=== PATIENT | male | born 1995 | race Caucasian/White ===

== ENCOUNTER → 2017-04-28 | Outpatient (CLI) | payer BC, OTHER ==
[~2017-04-28] MED LIST: /DILT30TAB; ACET-653
--- NOTE | 2017-04-28 17:05 | REP ---
Clinical: Dyspnea . Comparison: 07/31/2009 . Technique: PA and lateral. Findings: The mediastinum and cardiac silhouette are normal. The lung hogan are clear and without acute consolidation, effusion, or pneumothorax. The skeletal structures are intact and normal. Impression: 1. No acute cardiopulmonary process. Signed by William Larson MD 04/28/2017 04:57 P
== END ==
LOC: M WUC 16:46
PROVIDERS: ATTEND Physician Assistant
DX: R07.1 Chest pain on breathing (principal)

== ENCOUNTER → 2019-06-03 | Outpatient (CLI) | payer BC, OTHER ==
[~2019-06-03] MED LIST changes: -/DILT30TAB; +DILT1TAB11
[2019-06-03 12:56] LABS: BASO % 0.3 % (0.0-1.0); EOS # 0.2 10^3/uL (0.0-0.5); EOS % 2.4 % (0.0-3.0); HEMOGLOBIN 17.2 g/dl (13.5-17.5); LYMPH # 1.6 10^3/uL (1.5-5.0); LYMPH % 23.8 % (24.0-44.0); MEAN CORPUSCULAR HEMOGLOBIN 29.5 pg (27.0-33.0); MEAN CORPUSCULAR HGB CONC 33.7 g/dl (32.0-36.5); MEAN CORPUSCULAR VOLUME 87.3 fl (80.0-96.0); MONO # 0.6 10^3/uL (0.0-0.8); MONO % 8.2 % (0.0-5.0); NEUTROPHILS # 4.3 10^3/uL (1.5-8.5); PLATELET COUNT, AUTOMATED 304 10^3/uL (150-450); RED BLOOD COUNT 5.84 10^6/uL (4.30-6.10); WHITE BLOOD COUNT 6.7 10^3/uL (4.0-10.0)
[2019-06-03 13:15] LABS: INR 1.14; PROTHROMBIN TIME 14.3 SECONDS (11.8-14.0)
[2019-06-03 13:18] LABS: ALBUMIN 4.5 GM/DL (3.2-5.2); ALT/SGPT 24 U/L (12-78); BILIRUBIN,TOTAL 1.1 MG/DL (0.2-1.0); BLOOD UREA NITROGEN 16 MG/DL (7-18); CARBON DIOXIDE LEVEL 31 MEQ/L (21-32); CHLORIDE LEVEL 103 MEQ/L (98-107); CREATININE FOR GFR 1.25 MG/DL (0.70-1.30); GLOMERULAR FILTRATION RATE > 60.0 (>60); GLUCOSE, FASTING 87 MG/DL (70-100); POTASSIUM SERUM 4.4 MEQ/L (3.5-5.1); SODIUM LEVEL 138 MEQ/L (136-145)
== END ==
LOC: M LAB 11:55
PROVIDERS: ATTEND Physician Assistant
DX: Z00.00 Encounter for general adult medical examination without abnormal findings (principal)

== ENCOUNTER 2021-05-17 05:57 | Emergency (ER) | payer BC, OTHER ==
[~2021-05-17] VITALS: Ht 172.7 cm; Wt 66.6 kg
--- NOTE | 2021-05-17 08:00 | ECGEPIP ---
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
[2021-05-17] MEDS ORDERED: ONDA-83 PO (08:12)
[2021-05-17] MEDS ORDERED: CELE10TA PO (08:12)
[2021-05-17] MEDS ORDERED: FAMO40TA3 PO (08:12)
[2021-05-17] MEDS ORDERED: LOPE1CAP5 PO (08:12)
[2021-05-17] MEDS ORDERED: ALPRAZolam 0.25 MG TAB PO ONE (08:50)
[2021-05-17 10:45] VITALS: BP 130/74
== END 2021-05-17 10:55 | disposition left against medical advice (07) ==
LOC: M ED 05:57
DX: R00.2 Palpitations (principal); K21.9 Gastro-esophageal reflux disease without esophagitis; Z53.9 Procedure and treatment not carried out, unspecified reason

== ENCOUNTER → 2021-05-22 | Outpatient (CLI) | payer BC, OTHER ==
[~2021-05-22] MED LIST changes: +CELE10TA PO; +FAMO40TA3 PO; +LOPE1CAP5 PO; +ONDA-83 PO
--- NOTE | 2021-05-22 11:12 | REP ---
INDICATION: ABD PAIN. COMPARISON: None. TECHNIQUE: Transabdominal ultrasound FINDINGS: Multiple ultrasonographic images of the liver show the hepatic parenchymal echo pattern to be within normal limits. There is no intrahepatic or extrahepatic ductal dilatation. The common bile duct measures 2.3 mm. Multiple ultrasonographic images of the gallbladder show no abnormal echogenic foci within the gallbladder lumen, gallbladder wall thickening, or pericholecystic edema. The imaged portion of the pancreas is within normal limits. The spleen measures 10.1 x 9 x3.9 cm. No splenic or perisplenic abnormalities are noted. The right kidney measures 9.7 x 4 x 3.4 cm. The renal cortical echotexture is within normal limits. Corticomedullary differentiation is preserved. There is no hydronephrosis. There are no masses. The left kidney measures 10.7 x 5 x 5 cm. The renal cortical echotexture is within normal limits. Corticomedullary differentiation is preserved. There is no hydronephrosis. There are no masses. The imaged portion of the abdominal aorta is within normal limits. There is no evidence of free fluid. IMPRESSION: Within normal limits <Electronically signed by Jacques Bridges > 05/22/21 1108
== END ==
LOC: M RAD 10:29
PROVIDERS: ATTEND Physician Assistant
DX: R10.84 Generalized abdominal pain (principal)

== ENCOUNTER → 2022-09-30 | Outpatient (REF) | payer BC, OTHER | LOC: M WUC 16:06 | PROVIDERS: ATTEND Student in an Organized Health Care Education/Training Program | DX: J02.9 Acute pharyngitis, unspecified (principal) ==